=== PATIENT | female | born 1955 | race Caucasian/White ===

== ENCOUNTER 2023-11-21 19:20 | Outpatient (CLI) | payer MEDICARE | END 2023-11-21 19:21 | disposition critical access hospital (66) | LOC: EMS 19:20 | DX: M25.561 Pain in right knee (principal); M25.461 Effusion, right knee | CPT/HCPCS: A0425; A0427 ==

== ENCOUNTER 2023-11-21 19:41 | Inpatient (IN) | payer MEDICARE ==
--- NOTE | 2023-11-21 19:45 | ED Physician Documentation ---
PD HPI LOWER EXT INJURY - Stated complaint Stated Complaint: R KNEE PX - History obtained from History obtained from: Patient - Additional information Additional information: 6 days ago she started develop indolent and worsening right knee pain. There was no trauma. She does have a history of problems with the other knee but never this painful. It continued to worsen and is now excruciating. She has not had any fevers or chills. On the way here she was administered 200 mcg of fentanyl in divided doses and is feeling that her pain is "tolerable", at this time. PD PAST MEDICAL HISTORY - Present Medications Home Medications: Ambulatory Orders Medication Instructions Recorded Confirmed No Known Home Medications 11/21/23 11/21/23 - Allergies Allergies/Adverse Reactions: Allergies Allergy/AdvReac Type Severity Reaction Status Date / Time No Known Drug Allergies Allergy Verified 11/21/23 20:09 PD ED PE NORMAL - Vitals Vital signs reviewed: Yes - General General: Alert and oriented X 3, No acute distress - Extremities Extremities: Other (Moderate to large effusion of the right knee, no warmth or redness. Severely limited range of motion due to pain.) - Neuro Neuro: Alert and oriented X 3, Normal speech Results - Vitals Vitals: Vital Signs - 24 hr 11/21/23 20:02 Temperature 36.2 C L Heart Rate 77 Respiratory 22 Rate Blood Pressure 128/79 O2 Saturation 100 Oxygen O2 Source Room air - Labs Labs: Microbiology 11/21/23 21:00 Body Fluid Culture - Preliminary Synovial Fluid Laboratory Tests 11/21/23 11/21/23 11/21/23 19:58 19:58 19:58 WBC 9.2 RBC 3.77 L Hgb 11.6 L Hct 34.7 L MCV 92.0 MCH 30.8 MCHC 33.4 RDW 13.1 Plt Count 235 MPV 10.5 Neut # (Auto) 6.8 H Lymph # (Auto) 1.3 L [place] # (Auto) 1.1 H Eos # (Auto) 0.0 Baso # (Auto) 0.0 Absolute Nucleated RBC 0.00 Nucleated RBC % 0.0 ESR 43 H Sodium 132 L Potassium 3.7 Chloride 99 L Carbon Dioxide 24 Anion Gap 9.0 BUN 15 Creatinine 0.8 Estimated GFR (MDRD) 71 L Glucose 124 H Calcium 10.2 Total Bilirubin 0.6 AST 12 ALT 9 L Alkaline Phosphatase 62 C-Reactive Protein 7.5 H Total Protein 7.1 Albumin 4.0 Globulin 3.1 Albumin/Globulin Ratio 1.3 Fluid Source Fluid Color Fluid Clarity Fluid WBC Fluid RBC Fluid Neutrophils % Fluid Lymphocytes % Fluid Monocytes % Fluid Crystals 11/21/23 11/21/23 21:00 21:00 WBC RBC Hgb Hct MCV MCH MCHC RDW Plt Count MPV Neut # (Auto) Lymph # (Auto) [place] # (Auto) Eos # (Auto) Baso # (Auto) Absolute Nucleated RBC Nucleated RBC % ESR Sodium Potassium Chloride Carbon Dioxide Anion Gap BUN Creatinine Estimated GFR (MDRD) Glucose Calcium Total Bilirubin AST ALT Alkaline Phosphatase C-Reactive Protein Total Protein Albumin Globulin Albumin/Globulin Ratio Fluid Source SYNOVIAL Fluid Color YELLOW Fluid Clarity CLOUDY Fluid WBC 89161 Fluid RBC 3000 Fluid Neutrophils % 87 Fluid Lymphocytes % 6 Fluid Monocytes % 7 Fluid Crystals NONE SEEN - Rads (name of study) Three-view x-ray of the right knee demonstrates moderate effusion and mild to moderate degenerative changes without acute trauma. Relevant Findings:: Final report received, EMP independent interpretation of test Procedures - Arthrocentesis Joint: Knee, Right Preparation: Consent obtained, Sterile prep and drape Anesthesia: Lidocaine 1% Fluid: Sent for cell count, Cloudy, Sent for crystals, Fluid obtained - cc (60ml), Sent for gram stain Aftercare: Dressing applied, Other (Infiltrated 8 mL of Marcaine for joint pain in sterile fashion.) PD Medical Decision Making - ED course ED course: 68-year-old woman presents with progressive and severe right knee pain. She was comfortable on initial examination but the fentanyl quickly wore off and she needed divided doses of narcotics. Given the history and physical the worst on the differential would be a septic joint. Workup was done with unremarkable CBC save mild anemia but did have modestly elevated CRP and ESR. An arthrocentesis was done with about 60 mL out and it was somewhat cloudy. Initial white count on the fluid was 52,000 which is still concerning for septic joint. At that point I discussed the case with Dr. Maximino Kim who plans to take her to the operating room for a washout. I queried him about preop abx and requests none prior to repeat C/S in OR. Departure - Departure Disposition: ED Transfer to [facility] Clinical Impression: Septic joint of right knee joint Qualifiers: Septic arthritis organism: due to unspecified organism Qualified Code(s): M00.9 - Pyogenic arthritis, unspecified Condition: Stable
[2023-11-21 20:02] LABS: BASOPHILS % (AUTO) 0.3 %; EOSINOPHILS % (AUTO) 0.2 %; HCT - HEMATOCRIT 34.7 % (37.0-47.0); HGB - HEMOGLOBIN 11.6 g/dL (12.0-16.0); LYMPHOCYTES # (AUTO) 1.3 10^3/uL (1.5-3.5); LYMPHOCYTES % (AUTO) 13.8 %; MEAN CORPUSCULAR HEMOGLOBIN 30.8 pg (27.0-31.0); MEAN CORPUSCULAR HGB CONC 33.4 g/dL (32.0-36.0); MEAN PLATELET VOLUME 10.5 fL (7.9-10.8); MONOCYTES # (AUTO) 1.1 10^3/uL (0.0-1.0); MONOCYTES % (AUTO) 11.9 %; NEUTROPHILS # (AUTO) 6.8 10^3/uL (1.5-6.6); NEUTROPHILS % (AUTO) 73.5 %; PLT - PLATELET COUNT 235 10^3/uL (130-450); RED BLOOD COUNT 3.77 10^6/uL (4.20-5.40); RED CELL DISTRIBUTION WIDTH 13.1 % (12.0-15.0); WHITE BLOOD COUNT 9.2 x10^3/uL (4.8-10.8)
--- NOTE | 2023-11-21 20:36 | XRAY Report ---
PROCEDURE: Knee 3V RT INDICATIONS: knee pain TECHNIQUE: 3 views of the knee(s) were acquired. COMPARISON: None. FINDINGS: Bones: No fractures or dislocations. Tricompartmental osteophytosis. No suspicious bony lesions. Soft tissues: Moderate knee joint effusion. No suspicious soft tissue calcifications or masses. IMPRESSION: No fracture identified. Moderate knee joint effusion. Mild to moderate degenerative changes. Reviewed by: Vini Walker MD on 11/21/2023 8:35 PM PDT Approved by: Vini Walker MD on 11/21/2023 8:35 PM PDT Station ID: [id number]
[2023-11-21 20:42] LABS: ALBUMIN/GLOBULIN RATIO 1.3 (1.0-2.2); BILIRUBIN,TOTAL 0.6 mg/dL (0.2-1.0); CALCIUM 10.2 mg/dL (8.5-10.3); CREATININE 0.8 mg/dL (0.6-1.3); CRP - C-REACTIVE PROTEIN 7.5 mg/dL (<0.5); POTASSIUM 3.7 mmol/L (3.5-4.5); TOTAL PROTEIN 7.1 g/dL (6.4-8.9)
[2023-11-21] MEDS: KETOROLAC 15 MG/ML VIAL IVP STA (20:42)
[2023-11-21] MEDS: HYDROmorphone 1 MG/ML CARPUJECT IVP STA (20:43)
[2023-11-21] MEDS: ROPIVACAINE 0.2% PF 20 ML AMPULE SUBQ ONE (20:51)
[2023-11-21] MEDS ORDERED: BUPIVACAINE 0.25% PF 10 ML VIAL ONE (20:55)
[2023-11-21] MEDS: BUPIVACAINE 0.25% PF 30 ML VIAL SUBQ STA (21:00)
[2023-11-21 21:53] LABS: CC,BF WBC 52120 /mm^3
[2023-11-21 21:54] LABS: BF CLARITY CLOUDY; BF COLOR YELLOW; BF SOURCE SYNOVIAL; CC,BF RBC 3000 /mm^3
[2023-11-21 22:41] LABS: LYMPHOCYTES %,BODY FLUID 6 %; MONOCYTES %,BODY FLUID 7 %; NEUTROPHILS %, BF 87 %
--- NOTE | 2023-11-21 23:44 | ANESTHESIA ---
Pre-Anesthesia VS, & Labs - Diagnosis septic knee - Procedure knee arthroscopy and washout Vital Signs: Temp Pulse Resp BP Pulse Ox O2 Flow Rate 36.2 C L 77 22 128/79 100 11/21/23 20:02 11/21/23 20:02 11/21/23 20:02 11/21/23 20:02 11/21/23 20:02 Height: 5 ft 6 in Weight (kg): 85.9 kg Body Mass Index: 30.5 BMI Classification: Obese - NPO >8 hours - Is Patient ?: No - Lab Results Current Lab Results: Laboratory Tests 11/21/23 19:58: Sodium 132 L, Potassium 3.7, Chloride 99 L, Carbon Dioxide 24, Anion Gap 9.0, BUN 15, Creatinine 0.8, Estimated GFR (MDRD) 71 L, Glucose 124 H, Calcium 10.2, Total Bilirubin 0.6, AST 12, ALT 9 L, Alkaline Phosphatase 62, C- Reactive Protein 7.5 H, Total Protein 7.1, Albumin 4.0, Globulin 3.1, Albumin/Globulin Ratio 1.3 11/21/23 19:58: ESR 43 H 11/21/23 19:58: WBC 9.2, RBC 3.77 L, Hgb 11.6 L, Hct 34.7 L, MCV 92.0, MCH 30.8, MCHC 33.4, RDW 13.1, Plt Count 235, MPV 10.5, Neut # (Auto) 6.8 H, Lymph # (Auto) 1.3 L, [place] # (Auto) 1.1 H, Eos # (Auto) 0.0, Baso # (Auto) 0.0, Absolute Nucleated RBC 0.00, Nucleated RBC % 0.0 Fish Bones: 11/21/23 19:58 11/21/23 19:58 Home Medications and Allergies Home Medications: Ambulatory Orders No Known Home Medications 11/21/23 No Known Home Medications 11/21/23 Allergies/Adverse Reactions: Allergies Allergy/AdvReac Type Severity Reaction Status Date / Time No Known Drug Allergies Allergy Verified 11/21/23 20:09 Anes History & Medical History - Anesthetic History Anesthesia Complications: reports: No previous complications - Medical History Cardiovascular: reports: None Pulmonary: reports: None Gastrointestinal: reports: None Smoking Status: Never smoker Exam General: Alert, Oriented x3, Cooperative, Mild distress Dental: WNL Mouth Opening: Greater than 4 Fingerbreadths Neck Mobility: Normal Mallampati classification: I Thyromental Distance: greater than 6 cm Respiratory: Lungs clear Cardiovascular: Regular rate, Normal S1, Normal S2 Plan Anesthesia Type: General Consent for Procedure(s) Verified and Reviewed: Yes Code Status: Attempt Resuscitation ASA classification: 2-Mild systemic disease Is this case an emergency?: Yes
[2023-11-22] MEDS ORDERED: ATROPINE ABBOJECT 1 MG/10 ML SYRINGE IVP PRN (00:12)
[2023-11-22] MEDS ORDERED: ePHEDrine 50 MG/ML VIAL IVP PRN (00:12)
[2023-11-22] MEDS ORDERED: NALOXONE 0.4 MG/ML VIAL IVP PRN (00:12)
[2023-11-22] MEDS ORDERED: METOCLOPRAMIDE 10 MG/2 ML VIAL IVP PRN (00:12)
[2023-11-22] MEDS ORDERED: ONDANSETRON 4 MG/2 ML VIAL IVP PRN (00:12)
[2023-11-22] MEDS ORDERED: MORPHINE 2 MG/ML CARPUJECT IVP PRN (00:12)
[2023-11-22] MEDS ORDERED: fentaNYL 100 MCG/2 ML VIAL IVP PRN (00:12)
[2023-11-22] MEDS ORDERED: HYDROmorphone 0.5 MG/0.5 ML SYRINGE IVP PRN (00:12)
[2023-11-22] MEDS ORDERED: PROPOFOL 200 MG/20 ML VIAL IVP ONE (00:28)
[2023-11-22] MEDS ORDERED: fentaNYL 100 MCG/2 ML VIAL ONE (00:28)
[2023-11-22] MEDS ORDERED: LIDOCAINE-PF 2% 10 ML AMP SUBQ ONE (00:28)
--- NOTE | 2023-11-22 00:29 | HISTORY & PHYSICAL EXAMINATION ---
HPI - History of Present Illness Pain/Problem Location Description: Yesica Rivera is a 68-year-old female recently moved from [facility] - Past Medical History Cardiovascular: positive: None (Past medical history: ) Respiratory: positive: None GI: positive: None MRSA Hx?: No Social & Family Hx - Social History Does the pt smoke?: No Smoking Status: Never smoker Meds/Allgy - Home Medications Home Medications: Ambulatory Orders Medication Instructions Recorded Confirmed No Known Home Medications 11/21/23 11/21/23 - Allergies Allergies/Adverse Reactions: Allergies Allergy/AdvReac Type Severity Reaction Status Date / Time No Known Drug Allergies Allergy Verified 11/21/23 20:09 Review of Systems - Other Findings Other Findings: Noncontributory Exam - Vital Signs Vital Signs: Vital Signs x48h Temp Pulse Resp BP Pulse Ox 11/21/23 20:02 36.2 C L 77 22 128/79 100 - Physical Exam Comments/Other: Examination: HEENT: Normocephalic PERRLA EOMs full nose and throat clear neck supple without nodes Chest: Clear Cardiovascular: Regular rate and rhythm, S1 and S2 heard without murmurs Abdomen: Soft nontender active bowel sounds Extremities: Right knee showed 1-2+ knee swelling and effusion present. Increased warmth mild erythema noted. Painful range of motion beyond about 20 degrees of motion. Ligaments appear to be stable. Neurovascular intact distally. Neurologic: Patient alert and oriented x 3. Sensorimotor exam grossly intact and symmetrical. Results - Lab Results Fish Bones: 11/21/23 19:58 11/21/23 19:58 Other Lab Results: Lab Results x24hrs 11/21/23 11/21/23 11/21/23 Range/Units 21:00 21:00 19:58 WBC (4.8-10.8) x10^3/uL RBC (4.20-5.40) 10^6/uL Hgb (12.0-16.0) g/dL Hct (37.0-47.0) % MCV (81.0-99.0) fL MCH (27.0-31.0) pg MCHC (32.0-36.0) g/dL RDW (12.0-15.0) % Plt Count (130-450) 10^3/uL MPV (7.9-10.8) fL Neut # (Auto) (1.5-6.6) 10^3/uL Lymph # (Auto) (1.5-3.5) 10^3/uL [place] # (Auto) (0.0-1.0) 10^3/uL Eos # (Auto) (0.0-0.7) 10^3/uL Baso # (Auto) (0.0-0.1) 10^3/uL Absolute Nucleated RBC x10^3/uL Nucleated RBC % /100WBC ESR (0-30) mm/Hr Sodium 132 L (135-145) mmol/L Potassium 3.7 (3.5-4.5) mmol/L Chloride 99 L (101-111) mmol/L Carbon Dioxide 24 (21-32) mmol/L Anion Gap 9.0 (6-13) BUN 15 (6-20) mg/dL Creatinine 0.8 (0.6-1.3) mg/dL Estimated GFR (MDRD) 71 L (>89) Glucose 124 H (74-104) mg/dL Calcium 10.2 (8.5-10.3) mg/dL Total Bilirubin 0.6 (0.2-1.0) mg/dL AST 12 (10-42) IU/L ALT 9 L (10-60) IU/L Alkaline Phosphatase 62 (42-121) IU/L C-Reactive Protein 7.5 H (<0.5) mg/dL Total Protein 7.1 (6.4-8.9) g/dL Albumin 4.0 (3.2-5.5) g/dL Globulin 3.1 (2.1-4.2) g/dL Albumin/Globulin Ratio 1.3 (1.0-2.2) Fluid Source SYNOVIAL Fluid Color YELLOW Fluid Clarity CLOUDY Fluid WBC 89601 /mm^3 Fluid RBC 3000 /mm^3 Fluid Neutrophils % 87 % Fluid Lymphocytes % 6 % Fluid Monocytes % 7 % Fluid Crystals NONE SEEN 11/21/23 11/21/23 Range/Units 19:58 19:58 WBC 9.2 (4.8-10.8) x10^3/uL RBC 3.77 L (4.20-5.40) 10^6/uL Hgb 11.6 L (12.0-16.0) g/dL Hct 34.7 L (37.0-47.0) % MCV 92.0 (81.0-99.0) fL MCH 30.8 (27.0-31.0) pg MCHC 33.4 (32.0-36.0) g/dL RDW 13.1 (12.0-15.0) % Plt Count 235 (130-450) 10^3/uL MPV 10.5 (7.9-10.8) fL Neut # (Auto) 6.8 H (1.5-6.6) 10^3/uL Lymph # (Auto) 1.3 L (1.5-3.5) 10^3/uL [place] # (Auto) 1.1 H (0.0-1.0) 10^3/uL Eos # (Auto) 0.0 (0.0-0.7) 10^3/uL Baso # (Auto) 0.0 (0.0-0.1) 10^3/uL Absolute Nucleated RBC 0.00 x10^3/uL Nucleated RBC % 0.0 /100WBC ESR 43 H (0-30) mm/Hr Sodium (135-145) mmol/L Potassium (3.5-4.5) mmol/L Chloride (101-111) mmol/L Carbon Dioxide (21-32) mmol/L Anion Gap (6-13) BUN (6-20) mg/dL Creatinine (0.6-1.3) mg/dL Estimated GFR (MDRD) (>89) Glucose (74-104) mg/dL Calcium (8.5-10.3) mg/dL Total Bilirubin (0.2-1.0) mg/dL AST (10-42) IU/L ALT (10-60) IU/L Alkaline Phosphatase (42-121) IU/L C-Reactive Protein (<0.5) mg/dL Total Protein (6.4-8.9) g/dL Albumin (3.2-5.5) g/dL Globulin (2.1-4.2) g/dL Albumin/Globulin Ratio (1.0-2.2) Fluid Source Fluid Color Fluid Clarity Fluid WBC /mm^3 Fluid RBC /mm^3 Fluid Neutrophils % % Fluid Lymphocytes % % Fluid Monocytes % % Fluid Crystals - Other Other Results/Comments: Synovial fluid: WBCs 52,000; 87% neutrophils; no crystals seen Gram smear: Showed no organisms seen Impression/Plan - Problem List Problem List: Possible right septic knee Plan: Discussed treatment options with the patient. Her history and exam along with the laboratory results to date are suggestive that she may have a septic process occurring in her right knee. We have decided to proceed with an arthroscopic examination of the right knee under general anesthesia obtaining another specimen for culture and irrigate and washout the knee. After our surgical procedure we will start her empirically on broad-spectrum antibiotics and will tailor her antibiotics depending on her clinical progress and the results of our cultures. Consent has been signed. Leg has been marked.
[2023-11-22] MEDS ORDERED: BUPIVACAINE 0.25% PF 30 ML VIAL ONE (00:40)
[2023-11-22] MEDS ORDERED: LIDOCAINE 1%-EPI 1:100000 20 ML MDV ONE (00:40)
[2023-11-22] MEDS ORDERED: LACTATED RINGERS 1,000 ML IV SCH (01:00)
[2023-11-22] MEDS ORDERED: GLYCOPYRROLATE 1 MG/5 ML VIAL ONE (01:39)
[2023-11-22] MEDS: BUPIVACAINE 0.25% PF 30 ML VIAL SUBQ ONE ×2 (01:48)
[2023-11-22] MEDS: LACTATED RINGERS 1,000 ML IV ONE (02:12)
[2023-11-22] MEDS ORDERED: DOCUSATE SODIUM 100 MG CAPSULE PO PRN (02:12)
--- NOTE | 2023-11-22 02:18 | OPERATIVE REPORT ---
Operative Report - General Procedure Date: 11/22/23 Planned Procedure: Arthroscopic examination of right knee Pre-Op Diagnosis: Possible septic right knee Procedure Performed: Arthroscopic examination of the right knee; irrigation of right knee; aspiration of right knee effusion Post Op Diagnosis: Possible septic right knee - Procedure Note Primary Surgeon: Jesusita Kim MD Anesthesia Provider: Cheyanne Esparza CRNA Anesthesia Technique: General ET tube IV Fluids (mL): 1,000 Estimated Blood Loss (mL): 30 Complications: None - Other Other Information/Narrative: Description of procedure: Patient was taken the operating room from the emergency room department where she was placed under general anesthetic without any complications. She was then positioned supine on the operating room table. Right leg prepped and draped in usual fashion for our procedure. Through the superior medial parapatellar incision the inflow outflow catheter was inserted in the knee. We able to him some knee effusion fluid. This was put into a syringe and sent to microbiology for Gram smear aerobic and anaerobic cultures and sensitivities; fungal and TB cultures. Then through an anterior lateral parapatellar tendon portal the arthroscope was inserted into the knee. We then copiously irrigated the knee out thoroughly with irrigation solution. A total of 6000 mL of irrigation solution was used to flush out the knee. No significant abnormalities are appreciated on gross inspection of the knee with the arthroscope. At the end procedure removed the trocars from the knee and closed the skin incisions with simple interrupted stitches of 4-0 nylon. The wounds were then dressed. Leon wrap applied. Estimated blood loss: 30 mL Replacement: 1000 cc crystalloid Plan: Patient will be empirically started on Kefzol antibiotics pending the results of her culture results.
[2023-11-22] MEDS ORDERED: ceFAZolin (2G) 2 GM in SODIUM CHLORIDE 0.9% MINIBAG 100 ML IV SCH (03:00)
[2023-11-22] MEDS: ACETAMINOPHEN 500 MG TABLET PO SCH (03:48)
[2023-11-22] MEDS: NS W/20 MEQ KCL 1,000 ML IV SCH (03:48)
[2023-11-22] MEDS: SODIUM CHLORIDE FLUSH 0.9% 10 ML SYRINGE IVP PRN (03:48)
[2023-11-22] MEDS: CELECOXIB 100 MG CAPSULE PO SCH (09:14)
[2023-11-22] MEDS: ethyl alcohoL 62% SWAB AMPULE NAS SCH (09:14)
[2023-11-22] MEDS: ceFAZolin (2G) 2 GM in SODIUM CHLORIDE 0.9% MINIBAG 100 ML IV SCH (09:14)
[2023-11-22] MEDS: ASPIRIN EC 81 MG TABLET PO SCH (09:14)
[2023-11-22] MEDS: SODIUM CHLORIDE FLUSH 0.9% 10 ML SYRINGE IVP SCH (09:14)
--- NOTE | 2023-11-22 10:07 | PHARMACY PROGRESS NOTE ---
- Best Possible Medication History Admit Date and Time: Processed by: Nursing Medications reviewed in ED?: No Medication History completed: Yes As the person ultimately responsible for medication therapy, providers are able to order a medication from an existing home medication list in [facility] via the "Reconcile Routine" prior to Confirmation of that medication by technical support technician. Such practice is discouraged except when the physician, in their clinical judgment, deems that a medical need exists for a medication without regard to previous use.
--- NOTE | 2023-11-22 11:09 | PROVIDER PROGRESS NOTE ---
Subjective - Prog Note Date Prog Note Date: 11/22/23 Prog Note Time: 11:06 - Subjective Pt reports feeling: Improved (Much less pain in her knee today.) Objective - Vital Signs/Intake & Output Vital Signs: Vital Signs x48h Temp Pulse Resp BP Pulse Ox 11/22/23 09:35 36.6 C 64 18 104/63 98 11/22/23 08:42 37.1 C 98 18 126/100 H 96 11/22/23 04:42 36.6 C 73 16 108/58 L 93 11/22/23 03:42 36.5 C 70 16 123/68 95 Intake & Output: Intake & Output 11/19/23 11/20/23 11/21/23 11/22/23 23:59 23:59 23:59 23:59 Intake Total 100 Balance 100 - Lab Results Fish Bones: 11/21/23 19:58 11/21/23 19:58 Other Labs: Lab Results x24hrs 11/21/23 11/21/23 11/21/23 Range/Units 21:00 21:00 19:58 WBC (4.8-10.8) x10^3/uL RBC (4.20-5.40) 10^6/uL Hgb (12.0-16.0) g/dL Hct (37.0-47.0) % MCV (81.0-99.0) fL MCH (27.0-31.0) pg MCHC (32.0-36.0) g/dL RDW (12.0-15.0) % Plt Count (130-450) 10^3/uL MPV (7.9-10.8) fL Neut # (Auto) (1.5-6.6) 10^3/uL Lymph # (Auto) (1.5-3.5) 10^3/uL [place] # (Auto) (0.0-1.0) 10^3/uL Eos # (Auto) (0.0-0.7) 10^3/uL Baso # (Auto) (0.0-0.1) 10^3/uL Absolute Nucleated RBC x10^3/uL Nucleated RBC % /100WBC ESR (0-30) mm/Hr Sodium 132 L (135-145) mmol/L Potassium 3.7 (3.5-4.5) mmol/L Chloride 99 L (101-111) mmol/L Carbon Dioxide 24 (21-32) mmol/L Anion Gap 9.0 (6-13) BUN 15 (6-20) mg/dL Creatinine 0.8 (0.6-1.3) mg/dL Estimated GFR (MDRD) 71 L (>89) Glucose 124 H (74-104) mg/dL Calcium 10.2 (8.5-10.3) mg/dL Total Bilirubin 0.6 (0.2-1.0) mg/dL AST 12 (10-42) IU/L ALT 9 L (10-60) IU/L Alkaline Phosphatase 62 (42-121) IU/L C-Reactive Protein 7.5 H (<0.5) mg/dL Total Protein 7.1 (6.4-8.9) g/dL Albumin 4.0 (3.2-5.5) g/dL Globulin 3.1 (2.1-4.2) g/dL Albumin/Globulin Ratio 1.3 (1.0-2.2) Fluid Source SYNOVIAL Fluid Color YELLOW Fluid Clarity CLOUDY Fluid WBC 03477 /mm^3 Fluid RBC 3000 /mm^3 Fluid Neutrophils % 87 % Fluid Lymphocytes % 6 % Fluid Monocytes % 7 % Fluid Crystals NONE SEEN 11/21/23 11/21/23 Range/Units 19:58 19:58 WBC 9.2 (4.8-10.8) x10^3/uL RBC 3.77 L (4.20-5.40) 10^6/uL Hgb 11.6 L (12.0-16.0) g/dL Hct 34.7 L (37.0-47.0) % MCV 92.0 (81.0-99.0) fL MCH 30.8 (27.0-31.0) pg MCHC 33.4 (32.0-36.0) g/dL RDW 13.1 (12.0-15.0) % Plt Count 235 (130-450) 10^3/uL MPV 10.5 (7.9-10.8) fL Neut # (Auto) 6.8 H (1.5-6.6) 10^3/uL Lymph # (Auto) 1.3 L (1.5-3.5) 10^3/uL [place] # (Auto) 1.1 H (0.0-1.0) 10^3/uL Eos # (Auto) 0.0 (0.0-0.7) 10^3/uL Baso # (Auto) 0.0 (0.0-0.1) 10^3/uL Absolute Nucleated RBC 0.00 x10^3/uL Nucleated RBC % 0.0 /100WBC ESR 43 H (0-30) mm/Hr Sodium (135-145) mmol/L Potassium (3.5-4.5) mmol/L Chloride (101-111) mmol/L Carbon Dioxide (21-32) mmol/L Anion Gap (6-13) BUN (6-20) mg/dL Creatinine (0.6-1.3) mg/dL Estimated GFR (MDRD) (>89) Glucose (74-104) mg/dL Calcium (8.5-10.3) mg/dL Total Bilirubin (0.2-1.0) mg/dL AST (10-42) IU/L ALT (10-60) IU/L Alkaline Phosphatase (42-121) IU/L C-Reactive Protein (<0.5) mg/dL Total Protein (6.4-8.9) g/dL Albumin (3.2-5.5) g/dL Globulin (2.1-4.2) g/dL Albumin/Globulin Ratio (1.0-2.2) Fluid Source Fluid Color Fluid Clarity Fluid WBC /mm^3 Fluid RBC /mm^3 Fluid Neutrophils % % Fluid Lymphocytes % % Fluid Monocytes % % Fluid Crystals - Other Results/Comments Other Results/Comments: Examination: Right knee shows less swelling or effusion present today. Minimal warmth or discoloration or erythema. Able to gently range the motion from 0 to 40 degrees with very little pain. Neurovascular is intact distally. Laboratory: Cultures and sensitivities are still pending at this point. Last evening as noted earlier her Gram smear showed no organisms but many white cells up. Synovial fluid analysis showed a white cell count greater than 52,000 with 87% neutrophils Assessment/Plan - Problem List (1) Septic joint of right knee joint Impression: Plan: Still on treating the patient as if she has a septic joint pending our cultures and sensitivities. Will continue her on cefazolin medications and changes as a result of our upcoming cultures and sensitivities. Patient can still be up as tolerated weightbearing on this extremity. Leon wrap will minimize her knee flexion. Qualifiers: Septic arthritis organism: due to unspecified organism Qualified Code(s): M00.9 - Pyogenic arthritis, unspecified
[2023-11-22] MEDS ORDERED: ceFAZolin 1 GM VIAL IVP STA (11:11)
[2023-11-22] MEDS: oxyCODONE 5 MG TABLET PO PRN (18:44)
[2023-11-23] MEDS: ceFAZolin 1 GM in SODIUM CHLORIDE 0.9% MINIBAG 100 ML IV SCH (01:25)
[2023-11-23 07:52] VITALS: BP 124/75; O2SAT 96
--- NOTE | 2023-11-23 10:16 | Discharge Plan ---
Discharge Plan Problem Reviewed?: Yes Disposition: Home, Self Care Condition: Good Diet: Regular Activity Restrictions: Wt Bearing as Tolerated Shower Restrictions: No Driving Restrictions: Yes (No driving) Assistance Devices: Crutches Weight Bearing: Full Weight Health Concerns: Patient was admitted to the hospital on the suspicion of a septic right knee by her history and examination. Was taken to the operating room for arthroscopic exam of the knee and irrigation of the joint. Specimens were also obtained for microbiology. She was initially started on antibiotics on the presumed diagnosis. After 2 days cultures are still negative and patient's clinical examination and improved remarkably. Plan of Treatment: With negative cultures this was opted to stop her antibiotics at this point. She will be discharged home with only Tylenol medication to be taken as needed. Crutch ambulating weightbearing as tolerated on this extremity. Will follow-up will be with the orthopedic clinic in about a week's time Care Goals: Return to independent ambulation as per baseline Assessment: Assessment: Acute inflammation of the right knee. Septic joint was ruled out. Diagnosis and treatment plan was 6 explained to the patient. She appeared to understand Additional Instructions or Follow Up instructions: Follow-up with [facility] orthopedic clinic within 1 week of discharge. Phone number is [phone] No Smoking: If you smoke, Please STOP! Call for help. Follow-up with: Rah Eli MD [Provider Admit Priv/Credential] -
--- NOTE | 2023-11-23 10:19 | DISCHARGE SUMMARY ---
"Discharge Summary Admit Date: 11/22/23 Discharge Date: 11/23/23 Discharging Provider: Jesusita Kim MD Code Status: Attempt Resuscitation Condition at Discharge: Good Discharge Disposition: 01 Home, Self Care - DIAGNOSES Admission Diagnoses: Acute inflammation of right knee Discharge Diagnoses with Status of Each Condition: Acute inflammation right knee. Sepsis ruled out - HPI History of Present Illness: See Admit note - CONSULTS | PROCEDURES Procedures: Arthroscopic exam of right knee with irrigation of joint - HOSPITAL COURSE Hospital Course: After evaluation in the emergency room patient was taken the operating room for presumed septic right knee. Arthroscopic examination of the knee and aspiration of knee fluid was then obtained obtained. Upon discharge cultures were negative of her knee aspiration. Patient clinically had improved remarkably postoperatively. Within 6 to 8 hours after our surgery her knee was quite b enign with a pain level of 0-1 out of 10 versus 10 out of 10. Better knee motion and she was able to ambulate weightbearing as tolerated with crutches. - ALLERGIES Allergies/Adverse Reactions: Allergies Allergy/AdvReac Type Severity Reaction Status Date / Time No Known Drug Allergies Allergy Verified 11/21/23 20:09 - MEDICATIONS Home Medications: Ambulatory Orders Medication Instructions Recorded Confirmed No Known Home Medications 11/21/23 11/21/23 - PHYSICAL EXAM AT DISCHARGE Physical Exam Other/Comments: Examination: Patient was afebrile. Her right knee wounds were benign. Minimal knee swelling or effusion appreciated. Range of motion showed 0 to 65 degrees without any pain. Patient was ambulatory with crutches weightbearing as tolerated on the room. Laboratory: Review of cultures with the microbiologist showed no cultures to date. - LABS Result Diagrams: 11/21/23 19:58 11/21/23 19:58 - SEPSIS Current Stage of Sepsis: Ruled out - FOLLOW UP Follow Up: Follow-up with orthopedic clinic in about a week's time. - TIME SPENT Time Spent in Discharge (Minutes): 20"
[2023-11-23] MEDS: BENZOCAINE/MENTHOL LOZENGE MM PRN (10:30)
== END 2023-11-23 12:40 | disposition home or self-care (01) | DRG 554 ==
LOC: ED 19:41 → SDS 23:50 → MS2 23:51 → SDS 11-22 02:09 → MS2 11-22 02:09
PROVIDERS: ADMIT Orthopaedic Surgery; ATTEND Orthopaedic Surgery
PROC: 0S9C3ZX Drainage of Right Knee Joint, Percutaneous Approach, Diagnostic (ICD-10-PCS; 2023-11-22)
PROC: 3E1U48Z Irrigation of Joints using Irrigating Substance, Percutaneous Endoscopic Approach (ICD-10-PCS; principal; 2023-11-22 01:30)
DX: M00.9 Pyogenic arthritis, unspecified (principal); M17.11 Unilateral primary osteoarthritis, right knee; M25.461 Effusion, right knee; D64.9 Anemia, unspecified
CPT/HCPCS: 20610; 36415; 73562; 80053; 85025; 85651; 86140; 87070; 87101; 87205; 89051; 89060; 96374; 96375; 97161; 97165; 99285; A9270; C1713; J1170; J7120